=== PATIENT | male | born 1945 | race African-American/Black ===

== ENCOUNTER 2023-01-07 23:48 | Inpatient (IN) | payer MEDICAID ==
[~2023-01-07] VITALS: Ht 188 cm; Wt 107.5 kg
[2023-01-08] VITALS (30 sets, daily range): BP systolic 112–154; BP diastolic 70–99
[2023-01-08] MEDS ORDERED: TENECTEPLASE 50MG/VIAL IV ONE (00:45)
[2023-01-08 02:03] LABS: BASOPHILS % 0.5 % (0.0-2.0); EOSINOPHILS % 1.8 % (0.0-5.0); HEMATOCRIT. 41.5 % (42.0-52.0); HEMOGLOBIN. 13.7 g/dL (14.0-18.0); LYMPHOCYTES % 22.1 % (20.0-50.0); MEAN CORPUSCULAR HEMOGLOBIN 29.2 pg (28.0-32.0); MEAN CORPUSCULAR VOLUME 88.5 fL (80.0-94.0); MEAN PLATELET VOLUME 8.1 fl (7.4-10.4); MONOCYTES % 8.7 % (2.0-8.0); NEUTROPHILS % 66.9 % (40.0-76.0); PLATELET 208 x1000/uL (130-400); RED BLOOD CELL COUNT 4.68 mill/uL (4.7-6.1); RED CELL DISTRIBUTION WIDTH 16.4 % (11.6-14.6)
[2023-01-08 02:11] LABS: PROTHROMBIN TIME 10.9 sec (9.6-11.0)
[2023-01-08 02:15] LABS: CHLORIDE 110 mEq/L (98-107)
[2023-01-08] MEDS ORDERED: *TENECTEPLASE FOR AIS XX SCH (02:15)
[2023-01-08 02:26] LABS: ETHANOL BLOOD < 10 mg/dL
[2023-01-08] MEDS: HYDROCODONE/ACETAMINOPHEN 5/325MG TABLET PO PRN (06:57)
[2023-01-08] MEDS ORDERED: ACETAMINOPHEN 325MG TABLET PO PRN (07:00)
[2023-01-08] MEDS: MORPHINE SULFATE 2 MG/ML CPJ (NOT FOR IM USE) IV PRN ×3 (08:22→19:38)
[2023-01-08] MEDS ORDERED: NALOXONE HCL 0.4MG/ML VIAL IV PRN (08:30)
[2023-01-08] MEDS ORDERED: DOCUSATE SODIUM 100MG CAPSULE PO PRN (10:15)
[2023-01-08] MEDS ORDERED: IPRATROPIUM/ALBUTEROL 0.5-3(2.5)MG/3ML NEB HHN PRN (10:15)
[2023-01-08] MEDS ORDERED: LORAZEPAM 0.5MG TABLET PO PRN (10:15)
[2023-01-08] MEDS ORDERED: ONDANSETRON HCL 4MG/2ML INJ IV PRN (10:15)
[2023-01-08] MEDS ORDERED: IPRATROPIUM BROMIDE (0.02%) 0.5MG/2.5ML NEB HHN PRN (10:15)
[2023-01-08] MEDS ORDERED: ALBUTEROL (0.083%) 2.5MG/3ML NEB HHN PRN (10:15)
[2023-01-08] MEDS ORDERED: CLONIDINE 0.1MG TABLET PO PRN (10:15)
[2023-01-08] MEDS: HYDROCODONE/ACETAMINOPHEN 10/325MG TABLET PO PRN ×2 (12:11→21:49)
[2023-01-09] VITALS (22 sets, daily range): BP systolic 110–163; BP diastolic 23–84
[2023-01-09] MEDS: MORPHINE SULFATE 2 MG/ML CPJ (NOT FOR IM USE) IV PRN ×5 (01:02→23:22)
[2023-01-09] MEDS ORDERED: IOHEXOL-350 100 ML BOTTLE ONE (03:05)
[2023-01-09] MEDS ORDERED: DIPHENHYDRAMINE 25MG CAPSULE PO PRN (03:15)
[2023-01-09] MEDS: HYDROCODONE/ACETAMINOPHEN 10/325MG TABLET PO PRN ×3 (03:19→20:17)
[2023-01-09 05:52] LABS: BASOPHILS % 0.9 % (0.0-2.0); EOSINOPHILS % 3.9 % (0.0-5.0); HEMATOCRIT. 37.1 % (42.0-52.0); HEMOGLOBIN. 12.4 g/dL (14.0-18.0); LYMPHOCYTES % 22.7 % (20.0-50.0); MEAN CORPUSCULAR HEMOGLOBIN 29.1 pg (28.0-32.0); MEAN PLATELET VOLUME 8.3 fl (7.4-10.4); MONOCYTES % 10.1 % (2.0-8.0); NEUTROPHILS % 62.4 % (40.0-76.0); PLATELET 192 x1000/uL (130-400); RED BLOOD CELL COUNT 4.26 mill/uL (4.7-6.1); RED CELL DISTRIBUTION WIDTH 15.6 % (11.6-14.6)
[2023-01-09 06:16] LABS: CHLORIDE 105 mEq/L (98-107)
[2023-01-09] MEDS ORDERED: IPRATROPIUM/ALBUTEROL 0.5-3(2.5)MG/3ML NEB HHN PRN (18:00)
[2023-01-09 18:42] LABS: CLARITY URINE CLEAR (CLEAR); COLOR URINE YELLOW (YELLOW); KETONES URINE NEGATIVE (NEGATIVE); LEUKOCYTE ESTERASE URINE NEGATIVE (NEGATIVE); NITRITE URINE NEGATIVE (NEGATIVE); OCCULT BLOOD URINE NEGATIVE (NEGATIVE); PH URINE 7.5 (4.5-8.0); PROTEIN URINE NEGATIVE (NEGATIVE); SPECIFIC GRAVITY URINE 1.014 (1.005-1.030); UROBILINOGEN URINE 0.2 E.U./dL (0.2-1.0)
[2023-01-09 18:53] LABS: *AMPHETAMINES SCREEN URINE NEGATIVE (NEGATIVE); *BARBITURATES SCREEN URINE NEGATIVE (NEGATIVE); *BENZODIAZEPINES SCREEN URINE NEGATIVE (NEGATIVE); *COCAINE SCREEN URINE PRESUMTIVE POSITIVE (NEGATIVE); CANNABINOID URINE SCREEN NEGATIVE (NEGATIVE); METHADONE URINE SCREEN NEGATIVE (NEGATIVE); OPIATES URINE SCREEN PRESUMTIVE POSITIVE (NEGATIVE); PHENCYCLIDINE URINE SCREEN PRESUMTIVE POSITIVE (NEGATIVE)
[2023-01-10 00:08] VITALS: BP 103/51
[2023-01-10 04:07] VITALS: BP 116/56
[2023-01-10] MEDS: MORPHINE SULFATE 2 MG/ML CPJ (NOT FOR IM USE) IV PRN ×4 (04:31→21:06)
[2023-01-10 08:00] VITALS: BP 113/56
[2023-01-10] MEDS: ASPIRIN 81MG EC TABLET PO SCH (09:29)
[2023-01-10] MEDS: CLOPIDOGREL 75MG TABLET PO SCH (09:29)
[2023-01-10 12:00] VITALS: BP 120/94
[2023-01-10 16:00] VITALS: BP 132/69
[2023-01-10 20:00] VITALS: BP 104/49
[2023-01-11] VITALS: BP 118/67
[2023-01-11] MEDS: MORPHINE SULFATE 2 MG/ML CPJ (NOT FOR IM USE) IV PRN ×5 (01:43→20:56)
[2023-01-11 04:00] VITALS: BP 110/65
[2023-01-11 08:00] VITALS: BP 120/68
[2023-01-11] MEDS: ASPIRIN 81MG EC TABLET PO SCH (08:20)
[2023-01-11] MEDS: CLOPIDOGREL 75MG TABLET PO SCH (08:20)
[2023-01-11 12:00] VITALS: BP 115/66
[2023-01-11 16:00] VITALS: BP 102/62
[2023-01-11 20:00] VITALS: BP 108/58
[2023-01-12] VITALS: BP 113/57
[2023-01-12] MEDS: MORPHINE SULFATE 2 MG/ML CPJ (NOT FOR IM USE) IV PRN ×5 (01:39→19:58)
[2023-01-12] MEDS: HYDROCODONE/ACETAMINOPHEN 5/325MG TABLET PO PRN (03:36)
[2023-01-12 04:00] VITALS: BP 101/63
[2023-01-12 08:00] VITALS: BP 113/66
[2023-01-12] MEDS: ASPIRIN 81MG EC TABLET PO SCH (08:36)
[2023-01-12] MEDS: CLOPIDOGREL 75MG TABLET PO SCH (08:36)
[2023-01-12 12:00] VITALS: BP 108/45
[2023-01-12] MEDS ORDERED: ALBUTEROL (0.083%) 2.5MG/3ML NEB HHN PRN (13:45)
[2023-01-12] MEDS ORDERED: IPRATROPIUM BROMIDE (0.02%) 0.5MG/2.5ML NEB HHN PRN (13:45)
[2023-01-12 16:00] VITALS: BP 104/60
[2023-01-12] MEDS: HYDROCODONE/ACETAMINOPHEN 10/325MG TABLET PO PRN (16:47)
[2023-01-12 20:00] VITALS: BP_SYST 132; BP_SYST 161; BP_DIAS 111; BP_DIAS 51
[2023-01-13] VITALS: BP 99/63
[2023-01-13] MEDS: MORPHINE SULFATE 2 MG/ML CPJ (NOT FOR IM USE) IV PRN ×2 (00:02→04:20)
[2023-01-13 04:00] VITALS: BP 122/57
[2023-01-13 12:00] VITALS: BP 114/49
[2023-01-13 12:33] VITALS: BP 114/49
== END 2023-01-13 12:50 | disposition left against medical advice (07) | DRG 45 ==
LOC: ER 23:48 → EDBEDREQTM 01-08 02:15 → EDBEDREQ 01-08 02:15 → MICUSO 01-08 03:11 → EDBEDREQ 01-08 03:38 → EDBEDREQTM 01-08 03:38 → EDBEDREQSVC 01-08 06:54 → 3WST 01-09 17:28 → 6EST 01-11 16:27
PROVIDERS: ADMIT Family Medicine Adult Medicine; ATTEND Family Medicine Adult Medicine
PROC: 02HV33Z Insertion of Infusion Device into Superior Vena Cava, Percutaneous Approach (ICD-10-PCS; principal; 2023-01-08)
PROC: B548ZZA Ultrasonography of Superior Vena Cava, Guidance (ICD-10-PCS; 2023-01-08)
PROC: 4A00X4Z Measurement of Central Nervous Electrical Activity, External Approach (ICD-10-PCS; 2023-01-09)
DX: I63.9 Cerebral infarction, unspecified (principal); D64.9 Anemia, unspecified; G89.29 Other chronic pain; I73.9 Peripheral vascular disease, unspecified; R47.1 Dysarthria and anarthria; Z53.29 Procedure and treatment not carried out because of patient's decision for other reasons; R29.708 NIHSS score 8
CPT/HCPCS: 36415; 36573; 70496; 70498; 70551; 71045; 73610; 80048; 80053; 80061; 80305; 80320; 81003; 82962; 83036; 84443; 84484; 85025; 86850; 86900; 93005; 95816; 97110; 97162; 97166; 97530; 99291; C1725; J2270; J2997; Q0163; Q9967; G0480